=== PATIENT | male | born 1960 | race Caucasian/White ===

== ENCOUNTER 2023-04-11 11:07 | Emergency (ER) | payer MEDICARE ==
[2023-04-11] VITALS (8 sets, daily range): BP systolic 134–152; BP diastolic 71–85
[~2023-04-11] VITALS: Ht 182.9 cm; Wt 99.0 kg
[2023-04-11] MEDS ORDERED: TAMSULOSIN0.4 MG PO (13:06)
[2023-04-11] MEDS ORDERED: OMEPRAZOLE DR40 MG (13:06)
[2023-04-11] MEDS ORDERED: COZAAR50 MG PO (13:07)
[2023-04-11] MEDS ORDERED: SPIRIVA RE2.5 MCG/AC ×2 (13:07→13:34)
[2023-04-11] MEDS ORDERED: SYMBICORT 80-4.5MCG (13:08)
[2023-04-11] MEDS ORDERED: PREDNISONE10 MG PO (13:32)
[2023-04-11] MEDS ORDERED: PROVENTIL0.083 % IN (13:33)
[2023-04-11 13:42] LABS: URINE BILIRUBIN - DIPSTICK Negative (NEGATIVE); URINE BLOOD DIPSTICK Negative (NEGATIVE); URINE GLUCOSE - DIPSTICK Negative (NEGATIVE); URINE KETONE Trace mg/dL (NEGATIVE); URINE LEUK ESTERASE Negative (NEGATIVE); URINE NITRITE - DIPSTICK Negative (Negative); URINE PH 5.5 (4.5-8.0); URINE PROTEIN - DIPSTICK 30 mg/dL (NEG-TRACE); URINE SPECIFIC GRAVITY >=1.030; URINE UROBILINOGEN - DIPSTICK 0.2 E.U./dL (0.2)
[2023-04-11 13:43] LABS: URINE COLOR Dark yellow
[2023-04-11 13:44] LABS: URINE EPITHELIAL CELLS FEW EPI/hpf (0-FEW); URINE MUCUS MODERATE hpf (NONE-FEW)
[2023-04-11] MEDS ORDERED: NAPROXEN500 MG PO (14:02)
[2023-04-11] MEDS ORDERED: METHOCARBAMOL500 MG PO (14:02)
[2023-04-11] MEDS ORDERED: TRAMADOL HYDROC50 M1 PO (14:03)
== END 2023-04-11 14:40 | disposition home or self-care (01) ==
LOC: ED 11:07
PROVIDERS: Nurse Practitioner
DX: S20.211A Contusion of right front wall of thorax, initial encounter (principal); I10 Essential (primary) hypertension; J45.909 Unspecified asthma, uncomplicated; W19.XXXA Unspecified fall, initial encounter

== ENCOUNTER 2024-03-28 15:08 | Emergency (ER) | payer MEDICARE ==
[~2024-03-28] VITALS: Ht 182.9 cm; Wt 100.0 kg
[~2024-03-28 15:08] MED LIST: COZAAR50 MG PO; METHOCARBAMOL500 MG PO; NAPROXEN500 MG PO; OMEPRAZOLE DR40 MG; PREDNISONE10 MG PO; PROVENTIL0.083 % IN; SPIRIVA RE2.5 MCG/AC; SYMBICORT 80-4.5MCG; TAMSULOSIN0.4 MG PO; TRAMADOL HYDROC50 M1 PO
[2024-03-28] MEDS ORDERED: IPRATROPIUM-Albuterol 0.5MG-2.5MG/3 ML NEB ONE (16:45)
[2024-03-28 20:15] VITALS: BP 139/75
== END 2024-03-28 20:15 | disposition home or self-care (01) ==
LOC: ED 15:08
DX: R07.89 Other chest pain (principal); J44.9 Chronic obstructive pulmonary disease, unspecified; I10 Essential (primary) hypertension; Z72.0 Tobacco use; Z79.52 Long term (current) use of systemic steroids; Z20.822 Contact with and (suspected) exposure to COVID-19
CPT/HCPCS: J1100

== ENCOUNTER 2024-03-30 01:26 | Emergency (ER) | payer MEDICARE ==
[~2024-03-30] VITALS: Ht 182.9 cm; Wt 100.0 kg
[2024-03-30] MEDS ORDERED: ONDANSETRON HCl 4 MG/2 ML SDV IV ONE (01:35)
[2024-03-30] MEDS ORDERED: HYDROmorphone HCL 2 MG/AMP IV ONE (01:35)
[2024-03-30 01:37] VITALS: BP 143/89
[2024-03-30] MEDS ORDERED: ALBUTEROL SULFATE 2.5 MG VIAL IN ONE (01:45)
[2024-03-30 01:56] LABS: BASO% 0.2 % (0-3); EOS% 1.6 % (0-8); HEMOGLOBIN 16.7 g/dl (14.0-18.0); IMMATURE GRANULOCYTES 0.8 % (0.0-5.0); LYMPH% 21.8 % (15-41); MEAN CELL VOLUME 93.8 fL CALC (80.0-100.0); MEAN CORPUSCULAR HGB 30.7 pG CALC (26.0-32.0); MEAN CORPUSCULAR HGB CONC 32.7 g/dL CAL (32.0-36.0); MONO% 10.2 % (2-13); NEUT# 9.37 thou/uL (1.82-7.42); NEUT% 65.4 % (42-76); RED BLOOD COUNT 5.44 mill/uL (4.70-6.10); RED CELL DISTRI WIDTH 12.8 % (11.5-15.5)
[2024-03-30 02:07] LABS: ALBUMIN 4.4 g/dL (3.2-5.0); ALKALINE PHOSPHATASE 48 u/l (38-126); ANION GAP 12 (6-22 (CALC)); BILIRUBIN, TOTAL 0.6 mg/dL (0.2-1.3); BUN 28 mg/dL (8-23); BUN/CREATININE RATIO 26 (12-20 (CALC)); CARBON DIOXIDE 26 mmol/l (22-30); CHLORIDE 104 mmol/l (95-108); CREATININE 1.1 mg/dL (0.7-1.3); ESTIMATED GFR 76 ML/MIN (>=90 (CALC)); LIPASE 74 u/l (23-300); POTASSIUM 4.5 mmol/l (3.5-5.1); SGOT/AST 29 u/l (19-48); SODIUM 137 mmol/l (137-146); TOTAL PROTEIN 7.2 g/dL (6.3-8.2)
[2024-03-30] MEDS ORDERED: CELEBREX200 MG PO (04:30)
[2024-03-30 04:32] VITALS: BP 118/63
[2024-03-30 04:45] LABS: URINE BILIRUBIN - DIPSTICK Negative (NEGATIVE); URINE BLOOD DIPSTICK Negative (NEGATIVE); URINE CLARITY Clear; URINE GLUCOSE - DIPSTICK Negative (NEGATIVE); URINE KETONE Trace mg/dL (NEGATIVE); URINE LEUK ESTERASE Negative (Negative); URINE NITRITE - DIPSTICK Negative (Negative); URINE PH 5.5 (4.5-8.0); URINE PROTEIN - DIPSTICK Negative (NEG-TRACE); URINE UROBILINOGEN - DIPSTICK 0.2 E.U./dL (0.2)
[2024-03-30 04:46] LABS: URINE COLOR Yellow
[2024-03-30 05:00] VITALS: BP 130/66
== END 2024-03-30 05:25 | disposition home or self-care (01) ==
LOC: ED 01:26
PROVIDERS: Emergency Medicine
DX: R09.1 Pleurisy (principal); I10 Essential (primary) hypertension; J45.909 Unspecified asthma, uncomplicated
CPT/HCPCS: J1171; J2405; Q9967